=== PATIENT | male | born 1950 | race Two or more races ===

== ENCOUNTER 2022-08-07 07:32 | Outpatient (CLI) | payer OTHER | END 2022-08-07 11:36 | disposition home or self-care (01) | LOC: NUCLEAR 07:32 | PROVIDERS: ATTEND Internal Medicine Cardiovascular Disease | DX: I20.0 Unstable angina (principal) ==

== ENCOUNTER 2023-03-08 08:26 | Outpatient (CLI) | payer OTHER | END 2023-03-08 08:29 | disposition home or self-care (01) | LOC: NUCLEAR 08:26 | PROVIDERS: ATTEND Internal Medicine | DX: I34.0 Nonrheumatic mitral (valve) insufficiency (principal); I50.9 Heart failure, unspecified ==